=== PATIENT | male | born 1970 | race Caucasian/White ===

== ENCOUNTER 2017-06-15 14:52 | Emergency (ER) | payer OTHER ==
[~2017-06-15] VITALS: Ht 177.8 cm; Wt 113.6 kg
[~2017-06-15 14:52] MED LIST: NAPR220C11 PO; NAPR220C16 PO; PRE20 PO
[2017-06-15 14:53] VITALS: BP 126/85; PULSE 99; RESP 16; O2SAT 95
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
[2017-06-15] MEDS ORDERED: MethylprednisoLONE Sodium Succinate 40 mg/mL Inj IVPUSH ONE (15:25)
--- NOTE | 2017-06-15 15:52 | DRSVH ---
PROCEDURE: X-RAY RIGHT KNEE, THREE VIEWS ([id number]) INDICATIONS: 46 year-old male with right knee pain and swelling for 3 days. TECHNIQUE: 3 views of the knee were acquired. COMPARISON: [facility], , KNEE 3VW (RT), 09/04/2010, 11:34. FINDINGS: Bones: No fractures or dislocations. No suspicious bony lesions. Soft tissues: There is new large knee joint effusion joint effusion. No suspicious soft tissue calci fications. IMPRESSION: No acute bony injuries of the right knee. Nonspecific large right knee joint effusion may reflect soft tissue injury in the appropriate clinical setting. Dictated by: Bert Peter M.D. on 06/15/2017 at 15:49 Approved by: Bert Peter M.D. on 06/15/2017 at 15:50
--- NOTE | 2017-06-15 16:06 | DRSVH ---
PROCEDURE: X-RAY RIGHT CALCANEUS, MINIMUM TWO VIEWS ([id number]) INDICATIONS: 46 year-old male with right heel swelling and pain for 3 days. TECHNIQUE: Two views of the calcaneus were acquired. COMPARISON: None. FINDINGS: Bones: No fractures or dislocations. Degenerative posterior calcaneal enthesophyte is present. Ther e is moderate tibiotalar joint degeneration. No suspicious bony lesions. Soft tissues: No suspicious calcifications. Achilles tendon appears normal. IMPRESSION: 1. 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 2. Degenerative posterior calcaneal enthesophyte as well. Dictated by: Bert Peter M.D. on 06/15/2017 at 16:04 Approved by: Bert Peter M.D. on 06/15/2017 at 16:05
[2017-06-15 16:11] LABS: EOSINOPHILS % (AUTO) 1.5 % (0-5)
[2017-06-15 16:19] LABS: BASOPHILS % (AUTO) 0.3 % (0-3); MONOCYTES % (AUTO) 9.8 % (4-12); Mean Corpuscular Hemoglobin 27.8 pg (27.0-35.0); Mean Corpuscular Volume 85.6 fL (81-100); NEUTROPHILS % (AUTO) 80.1 % (40-74); Platelet Count 494 bil/L (150-400)
[2017-06-15 16:41] LABS: ERYTHROCYTE SEDIMENTATION RATE 18 mm/hr (0-15)
[2017-06-15] MEDS ORDERED: oxyCODONE-Acetamin 10-325 mg Tablet PO ONE (16:45)
[2017-06-15] MEDS ORDERED: Lidocaine 1%-Epi 1:100,000 20 mL Inj ONE (17:15)
[2017-06-15 17:36] VITALS: BP 135/91; PULSE 81; RESP 15; O2SAT 96
--- NOTE | 2017-06-15 18:18 | DRSVH ---
PROCEDURE: US VEINOUS LEG DUPLEX UNILATERAL, RIGHT INDICATIONS: 46 year-old male with right knee pain and swelling. TECHNIQUE: Real-time imaging, as well as color and pulse Doppler interrogation, were performed of the lower extr emity deep veins from the inguinal ligament to the popliteal fossa. COMPARISON: None. FINDINGS: The deep veins are normally compressible, and free of intraluminal thrombus. Color and pu lse Doppler demonstrate normal phasic intraluminal flow. There is normal augmentation response to di stal compression maneuver. IMPRESSION: No sonographic evidence for right lower extremity deep venous thrombosis. Dictated by: Bert Peter M.D. on 06/15/2017 at 18:16 Approved by: Bert Peter M.D. on 06/15/2017 at 18:16
[2017-06-15 18:21] LABS: BFWBC 26200 /mm3
[2017-06-15 18:30] LABS: MONOCYTES,BODY FLUID 4 %; OTHER CELLS,BODY FLUID 0
[2017-06-15 18:37] VITALS: BP 132/95; PULSE 84; O2SAT 95
[2017-06-15] MEDS ORDERED: _HYDROcodone/APAP 5-325 mg Tablet PO PRN (19:50)
[2017-06-15 20:12] LABS: APPEARANCE,URINE TURBID (CLEAR,HAZY); COLOR,URINE DARK YELLOW (YELLOW); OCCULT BLOOD,URINE NEGATIVE (NEGATIVE)
== END 2017-06-15 20:24 | disposition home or self-care (01) ==
LOC: EDBD 14:52 → SED 14:52
DX: M10.061 Idiopathic gout, right knee (principal); S86.091A Other specified injury of right Achilles tendon, initial encounter; M76.61 Achilles tendinitis, right leg; X58.XXXA Exposure to other specified factors, initial encounter; Y92.9 Unspecified place or not applicable; Y93.9 Activity, unspecified; Y99.9 Unspecified external cause status; F17.200 Nicotine dependence, unspecified, uncomplicated; Z79.52 Long term (current) use of systemic steroids
CPT/HCPCS: 20610; 36415; 73562; 73650; 80053; 81000; 85025; 85651; 86140; 87070; 87086; 87205; 89051; 89060; 93971; 96374; 96375; 99285; J1885; J2920